=== PATIENT | female | born 1970 ===

== ENCOUNTER 2021-02-04 08:02 | Emergency (ER) | payer OTHER ==
[~2021-02-04] VITALS: Ht 172.7 cm; Wt 82.5 kg
[~2021-02-04 08:02] MED LIST: BUPR150ER PO; LISI5 PO; METF500 PO; OMEPRAZOLE MAGN20 MG PO; ROSU5 PO; TRULICITY0.75 MG/01 SQ
[2021-02-04] MEDS ORDERED: ZINC15 PO (08:25)
[2021-02-04] MEDS ORDERED: CO Q10100 MG PO (08:27)
[2021-02-04] MEDS ORDERED: B-COMPLEX WITH1 EAC2 PO (08:27)
[2021-02-04] MEDS ORDERED: HYDROCODONE-AC1 EA10 PO (08:28)
[2021-02-04] MEDS ORDERED: L-LYSINE500 M1 PO (08:29)
[2021-02-04 10:12] LABS: SARS-Cov-2 (COVID-19) PCR, MMC NEGATIVE (NEGATIVE)
[2021-02-04 10:23] LABS: Alanine Aminotransfer (ALT/SGP 31 U/L (12-78); Albumin, Blood 3.5 g/dL (3.4-5.0); Albumin/Globulin Ratio 1.1 (0.8-1.8); Alk Phos 69 U/L (50-136); Anion Gap 3 mmol/L (6-16); Aspartate Aminotrans (AST/SGOT 16 U/L (12-37); Bilirubin, Total 0.3 mg/dL (0.1-1.0); Blood Urea Nitrogen 10 mg/dL (8-24); Bun/Creatinine Ratio 17.4 (12.0-20.0); CO2, Blood 29 mmol/L (21-32); Calcium, Blood 9.2 mg/dL (8.5-10.1); Chloride, Blood 106 mmol/L (98-108); Creatinine, Blood 0.57 mg/dL (0.40-1.00); Globulin, Blood 3.3 g/dL (2.2-4.0); Glomerular Filtration Rate >60 (60-); Glucose, Blood 172 mg/dL (70-99); Potassium, Blood 4.1 mmol/L (3.5-5.5); Sodium, Blood 138 mmol/L (136-145); Total Protein, Blood 6.8 g/dL (6.4-8.2)
[2021-02-04 11:03] LABS: BASOPHILS ABSOLUTE AUTO 0.07 K/mm3 (0.00-0.23); BASOPHILS PERCENT AUTO 1 % (0-2); EOSINOPHILS ABSOLUTE AUTO 0.42 K/mm3 (0.00-0.68); EOSINOPHILS PERCENT AUTO 5 % (0-6); Hematocrit 38.5 % (33.0-51.0); Hemoglobin 13.3 g/dL (11.5-16.0); IMMATURE GRAN ABSOLUTE AUTO 0.02 K/mm3 (0.00-0.10); IMMATURE GRAN PERCENT AUTO 0 % (0-1); LYMPHOCYTES ABSOLUTE AUTO 1.72 K/mm3 (0.84-5.20); LYMPHOCYTES PERCENT AUTO 20 % (21-46); MONOCYTES PERCENT AUTO 6 % (4-13); Mean Corpuscular HGB 30.5 pg (26.0-34.0); Mean Corpuscular HGB Conc 34.5 g/dL (31.5-36.5); Mean Corpuscular Volume 88 fL (80-100); NEUTROPHILS ABSOLUTE AUTO 5.71 K/mm3 (1.96-9.15); NEUTROPHILS PERCENT AUTO 68 % (41-73); RDW Coefficient Variation 12.6 % (11.7-14.2); Red Blood Cell Count 4.36 M/mm3 (3.80-5.20); White Blood Cell Count 8.44 K/mm3 (4.00-11.30)
[2021-02-04 11:20] LABS: Platelet Count 137 K/mm3 (150-400)
[2021-02-05] MEDS ORDERED: BUPR150ER PO (17:09)
[2021-02-05] MEDS ORDERED: Chantix1 MG PO (17:09)
== END 2021-02-04 14:09 | disposition home or self-care (01) ==
LOC: ER 08:02
PROVIDERS: Physician Assistant
DX: E11.52 Type 2 diabetes mellitus with diabetic peripheral angiopathy with gangrene (principal); I96 Gangrene, not elsewhere classified; I10 Essential (primary) hypertension; F17.210 Nicotine dependence, cigarettes, uncomplicated; Z20.822 Contact with and (suspected) exposure to COVID-19; Z88.8 Allergy status to other drugs, medicaments and biological substances; Z79.899 Other long term (current) drug therapy; Z79.84 Long term (current) use of oral hypoglycemic drugs
CPT/HCPCS: 36415; 73620; 80053; 85025; 93005; 93010; 93926; 96374; 96375; 99284-25; A9270; J1170; J2405; U0004

== ENCOUNTER 2021-02-06 09:21 | Day surgery (SDC) | payer OTHER ==
[~2021-02-06] VITALS: Ht 180.3 cm; Wt 81.0 kg
[~2021-02-06 09:21] MED LIST changes: +B-COMPLEX WITH1 EAC2 PO; +CO Q10100 MG PO; +Chantix1 MG PO; +HYDROCODONE-AC1 EA10 PO; +L-LYSINE500 M1 PO; +ZINC15 PO
[2021-02-06] MEDS ORDERED: LORCET 5-325 M1 EACH PO (09:56)
--- NOTE | 2021-02-06 14:37 | NUR ---
PATIENT RETURNED FROM THE [facility]. PLACED ON THE MONITOR AND GROIN SITE CHECKED. DOPPLER PULSES NOTED TO THE RIGHT PT/DP. MYNX NOTED ANTEGRADE TO RIGHT GROIN. 97.1 TEMP AND CALL LIGHT IN REACH. SIDE RAILS UP X 2. ORDERS NOTED.
[2021-02-06] MEDS ORDERED: CLOP75 PO (14:47)
--- NOTE | 2021-02-06 15:54 | NUR ---
PATIENT SAT UP IN THE BED AND 45 DEGREES AND LUNCH TRAY SERVED. DAUGHTER AT THE BEDSIDE TO ASSIST. NO CHANGE IN RIGHT GROIN.
--- NOTE | 2021-02-06 16:10 | NUR ---
REVIEWED DISCHARGE INSTRUCTIONS WITH THE PATIENT AND HER DAUGHTER. COPIES GIVEN AFTER SIGNATURES OBTAINED. FOLLOW UP IN 2-4 WEEKS ORDERED, PLANNING ON HAVING SURGERY TOMORROW.
--- NOTE | 2021-02-06 16:21 | NUR ---
PATIENT UP WALKING IN THE RECOVERY ROOM. PIV REMOVED AND PRESSURE DRESSING APPLIED. PATIENT DRESSED AND ALL BELONGINGS GATHERED AND RETAINED BY THE PATIENT.
--- NOTE | 2021-02-06 16:26 | NUR ---
PATIENT DISCAHRGED HOME VIA WHEELCHAIR. DR. POZO AT THE BEDSIDE AND SPOKE WITH THE PATIETN AND THE DAUGHTER.
== END 2021-02-06 16:15 | disposition home or self-care (01) ==
LOC: MHTC 09:21
DX: E11.52 Type 2 diabetes mellitus with diabetic peripheral angiopathy with gangrene (principal); I10 Essential (primary) hypertension; K21.9 Gastro-esophageal reflux disease without esophagitis; E78.5 Hyperlipidemia, unspecified; F17.210 Nicotine dependence, cigarettes, uncomplicated; Z88.8 Allergy status to other drugs, medicaments and biological substances; Z79.84 Long term (current) use of oral hypoglycemic drugs
CPT/HCPCS: 76937; 85347; 93005; 93010; 99152; 99153; A9270; C1714; C1725; C1753; C1760; C1769; C1885; C1887; C1894; C2623; J2060; J2250; J3010; J7030; J7040; Q9967

== ENCOUNTER 2021-02-07 13:15 | Day surgery (SDC) | payer OTHER ==
[~2021-02-07] VITALS: Ht 172.7 cm; Wt 83.0 kg
[~2021-02-07 13:15] MED LIST changes: +CLOP75 PO; +LORCET 5-325 M1 EACH PO
--- NOTE | 2021-02-07 15:59 | NUR ---
02/07/21 1559 Keeley Montes ARMS SECURED ON PADDED BOARDS.
== END 2021-02-07 16:55 | disposition home or self-care (01) ==
LOC: ORSCSDS 13:15
PROVIDERS: Podiatrist
PROC: 0Y6X0Z0 Detachment at Right 5th Toe, Complete, Open Approach (ICD-10-PCS; principal; 2021-02-07 14:15)
DX: E11.52 Type 2 diabetes mellitus with diabetic peripheral angiopathy with gangrene (principal); I73.1 Thromboangiitis obliterans [Buerger's disease]; I10 Essential (primary) hypertension; E78.00 Pure hypercholesterolemia, unspecified; K21.9 Gastro-esophageal reflux disease without esophagitis; F17.210 Nicotine dependence, cigarettes, uncomplicated; Z79.84 Long term (current) use of oral hypoglycemic drugs; Z79.899 Other long term (current) drug therapy
CPT/HCPCS: 82947; 88305; 88311; A9270; J0690; J1100; J1885; J2405; J2704; J3010; J7120

== ENCOUNTER → 2022-02-10 | Outpatient (CLI) | payer BC ==
[2022-02-11 16:08] LABS: HPV 16 Negative (Negative); HPV 18 Negative (Negative); HPV OTHER HR TYPES Negative (Negative)
== END | disposition home or self-care (01) ==
LOC: LAB 11:20 → LAB SHORT 11:20
PROVIDERS: Advanced Practice Midwife
DX: Z01.419 Encounter for gynecological examination (general) (routine) without abnormal findings (principal)
CPT/HCPCS: 87624; G0123

== ENCOUNTER 2024-05-30 16:36 | Emergency (ER) | payer BC ==
[~2024-05-30] VITALS: Ht 172.7 cm; Wt 64.4 kg
[2024-05-30 17:15] LABS: BASOPHILS ABSOLUTE AUTO 0.08 K/mm3 (0.00-0.23); BASOPHILS PERCENT AUTO 1 % (0-2); EOSINOPHILS ABSOLUTE AUTO 0.14 K/mm3 (0.00-0.68); EOSINOPHILS PERCENT AUTO 2 % (0-6); Hematocrit 42.5 % (33.0-51.0); Hemoglobin 15.1 g/dL (11.5-16.0); IMMATURE GRAN ABSOLUTE AUTO 0.03 K/mm3 (0.00-0.10); IMMATURE GRAN PERCENT AUTO 0 % (0-1); LYMPHOCYTES ABSOLUTE AUTO 1.62 K/mm3 (0.84-5.20); LYMPHOCYTES PERCENT AUTO 23 % (21-46); MONOCYTES ABSOLUTE AUTO 0.43 K/mm3 (0.16-1.47); MONOCYTES PERCENT AUTO 6 % (4-13); Mean Corpuscular HGB 31.1 pg (26.0-34.0); Mean Corpuscular HGB Conc 35.5 g/dL (31.5-36.5); Mean Corpuscular Volume 87 fL (80-100); NEUTROPHILS ABSOLUTE AUTO 4.66 K/mm3 (1.96-9.15); NEUTROPHILS PERCENT AUTO 67 % (41-73); Platelet Count 206 K/mm3 (150-400); RDW Coefficient Variation 12.1 % (11.7-14.2); RDW Standard Deviation 38.6 fL (35.1-46.3); Red Blood Cell Count 4.86 M/mm3 (3.80-5.20); White Blood Cell Count 6.96 K/mm3 (4.00-11.30)
[2024-05-30 17:25] LABS: PCO2 Venous 44.4 mmHg (38-42); pH Blood Venous 7.36 (7.34-7.37)
[2024-05-30 17:26] LABS: Base Excess Venous -0.2 mmol/L; Bicarbonate Venous 23.6 mmol/L (24.0-30.0)
[2024-05-30 18:05] LABS: Alanine Aminotransfer (ALT/SGP 21 U/L (12-78); Albumin, Blood 3.6 g/dL (3.4-5.0); Albumin/Globulin Ratio 1.1 (0.8-1.8); Alk Phos 78 U/L (50-136); Anion Gap 14 mmol/L (3-11); Aspartate Aminotrans (AST/SGOT 13 U/L (12-37); Bilirubin, Total 0.4 mg/dL (0.1-1.0); Blood Urea Nitrogen 17 mg/dL (8-24); Bun/Creatinine Ratio 21.5 (12.0-20.0); CO2, Blood 22 mmol/L (21-32); Chloride, Blood 101 mmol/L (98-108); Creatinine, Blood 0.79 mg/dL (0.40-1.00); Globulin, Blood 3.4 g/dL (2.2-4.0); Glomerular Filtration Rate 88 (60-); Glucose, Blood 598 mg/dL (70-99); Potassium, Blood 4.6 mmol/L (3.5-5.5); Sodium, Blood 132 mmol/L (136-145)
[2024-05-30] MEDS ORDERED: Insulin Regular 100 Unit/ML 1ML Dose IV ONE (21:45)
[2024-05-30] MEDS ORDERED: NS 1,000 ML IV SCH (21:45)
[2024-05-30 23:00] VITALS: BP 117/79
[2024-05-30 23:44] LABS: Source, Urine Clean Catch
[2024-05-30 23:47] LABS: Appearance, Urine Clear (Clear); Bilirubin, Urine Neg (Neg); Blood, Urine Neg (Neg); Color, Urine Yellow (P-Yellow); Glucose Qualitative, Urine 4+ (Neg); Ketones, Urine 2+ (Neg); Leukocyte Esterase, Urine Neg (Neg); Nitrite, Urine Neg (Neg); Protein, Urine Neg (Neg); Specific Gravity, Urine 1.015 (1.003-1.022); Urobilinogen, Urine NORM (Normal)
== END 2024-05-31 00:13 | disposition home or self-care (01) ==
LOC: ER 16:36
PROVIDERS: Emergency Medicine; Student in an Organized Health Care Education/Training Program
DX: E11.65 Type 2 diabetes mellitus with hyperglycemia (principal); E86.0 Dehydration; I10 Essential (primary) hypertension; F17.210 Nicotine dependence, cigarettes, uncomplicated; Z88.8 Allergy status to other drugs, medicaments and biological substances; Z79.899 Other long term (current) drug therapy; Z91.148 Patient's other noncompliance with medication regimen for other reason
CPT/HCPCS: 80053; 81003; 82010; 82803; 82947; 85025; 93005; 93010; 96360; 99283-25; J1815; J7030

== ENCOUNTER → 2024-05-30 | Outpatient (CLI) | payer BC | LOC: LAB SHORT 18:20 → LAB 18:20 | DX: E87.29 Other acidosis (principal) | CPT/HCPCS: 82043 ==

== ENCOUNTER → 2024-12-19 | Outpatient (CLI) | payer BC ==
[2024-12-19 12:18] LABS: Alanine Aminotransfer (ALT/SGP 16.0 U/L (12-78); Albumin, Blood 4.1 g/dL (3.4-5.0); Albumin/Globulin Ratio 1.3 (0.8-1.8); Anion Gap 7.0 mmol/L (3-11); Aspartate Aminotrans (AST/SGOT 9.0 U/L (12-37); Bilirubin, Total 0.4 mg/dL (0.1-1.0); Blood Urea Nitrogen 21.0 mg/dL (8-24); CO2, Blood 29.0 mmol/L (21-32); Calcium, Blood 9.1 mg/dL (8.5-10.1); Chloride, Blood 106.0 mmol/L (98-108); Creatinine, Blood 0.65 mg/dL (0.40-1.00); Globulin, Blood 3.2 g/dL (2.2-4.0); Glucose, Blood 96.0 mg/dL (70-99); Potassium, Blood 4.1 mmol/L (3.5-5.5); Sodium, Blood 138.0 mmol/L (136-145); Total Protein, Blood 7.3 g/dL (6.4-8.2)
== END | disposition home or self-care (01) ==
LOC: LAB 10:50 → LAB SHORT 10:50
PROVIDERS: Nurse Practitioner Family
DX: E11.42 Type 2 diabetes mellitus with diabetic polyneuropathy (principal)
CPT/HCPCS: 80053; 82043